=== PATIENT | male | born 1940 | race Caucasian/White ===

== ENCOUNTER 2020-04-09 04:43 | Observation (INO) ==
[2020-04-09] MEDS ORDERED: GLUCAGON 1 MG VIAL IM PRN (10:44)
[2020-04-09 11:25] LABS: Basophils # 0.1 10*3/uL (0.0-0.2); Basophils % 0.9 % (0.0-0.8); Eosinophils % 0.8 % (0.00-10.9); Hematocrit 51.8 VOL% (42.0-52.0); Immature Granulocytes % 0.2 %; Immature Granulocytes Absolute 0.01 #; Lymphocytes % 18.3 % (21.2-54.2); Mean Corpuscular HGB Conc 32.8 GM/DL (32-36); Mean Corpuscular Volume 90.4 FL (87-102); Monocytes % 8.1 % (1.7-12.7); Neutrophils % 71.7 % (38.7-73.9); Platelet Count 160 T/CUMM (130-400); Red Blood Count 5.73 MC/CUMM (3.8-5.5); Red Cell Distribution Width 12.8 % (9.3-17.3); White Blood Count 5.3 T/CUMM (4-12)
[2020-04-09 12:14] LABS: Albumin 3.7 G/DL (3.4-5.0); Bilirubin,Total 0.8 MG/DL (0.2-1.0); Calcium 9.2 MG/DL (8.5-10.1); Osmolality,Calculated 280.7 MOS/KG (273-304); Risk Ratio 3.51; Thyroid Stimulating Hormone 1.89 uIU/ml (0.358-3.74); Total Protein 7.8 G/DL (6.4-8.3); VLDL CHOLESTEROL 22.8 MG/DL
[2020-04-09] MEDS: PANTOPRAZOLE 40 MG VIAL IV SCH (14:52)
[2020-04-09] MEDS: SODIUM CHLORIDE 0.9% 1,000 ML IV SCH (14:52)
[2020-04-09] MEDS ORDERED: ENOXAPARIN 40 MG/0.4 ML SYRINGE SUBCUT SCH (21:00)
[2020-04-09] MEDS: ATORVASTATIN 40 MG TABLET PO SCH (21:58)
[2020-04-09] MEDS: ENOXAPARIN 80 MG/0.8 ML SYRINGE SUBCUT SCH (21:59)
[2020-04-10] MEDS: SODIUM CHLORIDE 0.9% 1,000 ML IV SCH ×2 (00:12→21:36)
[2020-04-10 06:06] LABS: Basophils # 0.1 10*3/uL (0.0-0.2); Basophils % 1.3 % (0.0-0.8); Eosinophils # 0.1 10*3/uL (0.0-0.87); Eosinophils % 2.6 % (0.00-10.9); Hematocrit 44.2 VOL% (42.0-52.0); Hemoglobin 14.8 GM/DL (14.0-18.0); Immature Granulocytes % 0.4 %; Immature Granulocytes Absolute 0.02 #; Lymphocytes # 1.8 10*3/uL (1.4-4.0); Lymphocytes % 33.5 % (21.2-54.2); Mean Corpuscular HGB Conc 33.5 GM/DL (32-36); Mean Corpuscular Volume 89.7 FL (87-102); Neutrophils % 50.2 % (38.7-73.9); Platelet Count 167 T/CUMM (130-400); Red Blood Count 4.93 MC/CUMM (3.8-5.5); Red Cell Distribution Width 12.9 % (9.3-17.3); White Blood Count 5.3 T/CUMM (4-12)
[2020-04-10 06:27] LABS: Calcium 8.2 MG/DL (8.5-10.1); Osmolality,Calculated 280.5 MOS/KG (273-304)
[2020-04-10] MEDS ORDERED: diphenhydrAMINE CAP 50 MG CAPSULE PO ONE (06:43)
[2020-04-10] MEDS ORDERED: DIAZEPAM 5 MG TABLET PO ONE (06:43)
[2020-04-10] MEDS: PANTOPRAZOLE 40 MG VIAL IV SCH (08:01)
[2020-04-10] MEDS: ENOXAPARIN 80 MG/0.8 ML SYRINGE SUBCUT SCH (08:02)
[2020-04-10] MEDS ORDERED: ASPIRIN EC 81 MG TABLET PO SCH (09:00)
[2020-04-10] MEDS ORDERED: MIDAZOLAM 2 MG/2 ML VIAL ONE (09:43)
[2020-04-10] MEDS ORDERED: LIDOCAINE 1% 20 ML VIAL ONE (09:43)
[2020-04-10] MEDS ORDERED: HEPARIN/NACL 0.9% 2 UNITS/ML 1,000 ML IV ONE (09:43)
[2020-04-10] MEDS ORDERED: NITROGLYCERIN DRIP 50 MG/250 ML BOTTLE IV ONE (09:43)
[2020-04-10] MEDS ORDERED: fentaNYL 100 MCG/2 ML VIAL ONE (09:44)
[2020-04-10] MEDS ORDERED: VERAPAMIL 5 MG/2 ML VIAL ONE (09:44)
[2020-04-10] MEDS: ATORVASTATIN 40 MG TABLET PO SCH (21:35)
[2020-04-11 05:57] LABS: Basophils # 0.1 10*3/uL (0.0-0.2); Eosinophils # 0.1 10*3/uL (0.0-0.87); Eosinophils % 1.9 % (0.00-10.9); Hematocrit 44.8 VOL% (42.0-52.0); Immature Granulocytes % 0.2 %; Immature Granulocytes Absolute 0.01 #; Lymphocytes # 0.8 10*3/uL (1.4-4.0); Mean Corpuscular HGB Conc 33.5 GM/DL (32-36); Mean Corpuscular Volume 89.8 FL (87-102); Mean Platelet Volume 9.9 FL (9.6-12.0); Monocytes % 11.5 % (1.7-12.7); Neutrophils % 69.4 % (38.7-73.9); Platelet Count 147 T/CUMM (130-400); Red Blood Count 4.99 MC/CUMM (3.8-5.5); Red Cell Distribution Width 12.9 % (9.3-17.3); White Blood Count 5.1 T/CUMM (4-12)
[2020-04-11 06:21] LABS: Calcium 8.5 MG/DL (8.5-10.1); Osmolality,Calculated 280.4 MOS/KG (273-304)
[2020-04-11 08:53] VITALS: BP 138/68
[2020-04-11] MEDS ORDERED: ASPIRIN EC 81 MG TABLET PO SCH (09:00)
[2020-04-11] MEDS: PANTOPRAZOLE 40 MG VIAL IV SCH (09:54)
== END 2020-04-11 13:35 | disposition home or self-care (01) ==
LOC: N.TELES
PROVIDERS: ADMIT Internal Medicine; ATTEND Internal Medicine
PROC: CLCCHCL (ICD-10-PCS; 2020-04-10 10:15)

== ENCOUNTER 2020-12-23 14:33 | Inpatient (IN) ==
[2020-12-23] MEDS ORDERED: DEXTROSE 50% 25 GM/50 ML VIAL IV PRN (16:20)
[2020-12-23] MEDS ORDERED: ONDANSETRON 4 MG/2 ML VIAL IV PRN (16:20)
[2020-12-23] MEDS ORDERED: GLUCAGON 1 MG VIAL IM PRN (16:20)
[2020-12-23] MEDS ORDERED: ONDANSETRON 4 MG/2 ML VIAL ONE (16:21)
[2020-12-23] MEDS ORDERED: HYDROmorphone 2 MG/1 ML VIAL ONE (16:22)
[2020-12-23] MEDS: HYDROmorphone 2 MG/1 ML VIAL IV PRN ×2 (16:26→22:58)
[2020-12-23] MEDS ORDERED: BISACODYL 5 MG TABLET PO PRN (16:38)
[2020-12-23] MEDS ORDERED: HYDROmorphone 2 MG/1 ML VIAL IV PRN (16:38)
[2020-12-23] MEDS ORDERED: ALBUTEROL/IPRATROPIUM 3 ML NEB RESP TX PRN (16:38)
[2020-12-23] MEDS ORDERED: ACETAMINOPHEN 325 MG TABLET PO PRN (16:38)
[2020-12-23] MEDS ORDERED: LACTATED RINGERS 1,000 ML IV ONE (16:40)
[2020-12-23] MEDS: LACTATED RINGERS 1,000 ML IV SCH (17:53)
[2020-12-23] MEDS: PIPERACILLIN/TAZOBACTAM 3,375 MG in SODIUM CHLORIDE 0.9% 100 ML IV SCH (21:30)
[2020-12-24] MEDS: LACTATED RINGERS 1,000 ML IV SCH ×2 (03:01→09:28)
[2020-12-24] MEDS: PIPERACILLIN/TAZOBACTAM 3,375 MG in SODIUM CHLORIDE 0.9% 100 ML IV SCH ×3 (03:02→20:08)
[2020-12-24] MEDS: HYDROmorphone 2 MG/1 ML VIAL IV PRN ×5 (04:44→13:52)
[2020-12-24 05:25] LABS: Basophils % 0.4 % (0.0-0.8); Eosinophils % 0.1 % (0.00-10.9); Hematocrit 44.9 VOL% (42.0-52.0); Hemoglobin 14.2 GM/DL (14.0-18.0); Lymphocytes # 0.5 10*3/uL (1.4-4.0); Lymphocytes % 4.7 % (21.2-54.2); Mean Corpuscular HGB Conc 31.6 GM/DL (32-36); Mean Corpuscular Volume 92.8 FL (87-102); Mean Platelet Volume 10.8 FL (9.6-12.0); Monocytes % 9.2 % (1.7-12.7); Neutrophils % 84.6 % (38.7-73.9); Platelet Count 116 T/CUMM (130-400); Red Blood Count 4.84 MC/CUMM (3.8-5.5); Red Cell Distribution Width 14.3 % (9.3-17.3); White Blood Count 9.6 T/CUMM (4-12)
[2020-12-24 05:53] LABS: Albumin 2.8 G/DL (3.4-5.0); Bilirubin,Total 3.7 MG/DL (0.20-1.00); Calcium 8.6 MG/DL (8.5-10.1); Osmolality,Calculated 283.3 MOS/KG (273-304); Potassium 3.9 MMOL/L (3.5-5.1); Total Protein 6.9 G/DL (6.4-8.2)
[2020-12-24 05:54] LABS: Lymphocytes 10 % (20-55); Platelet Estimate Decreased; Segmented Neutrophils 87 % (50-85); Total Cells Counted 100
[2020-12-24] MEDS: PANTOPRAZOLE 40 MG TABLET PO SCH ×2 (08:56→09:29)
[2020-12-24] MEDS ORDERED: propofoL 200 MG/20 ML VIAL IV ONE (09:18)
[2020-12-24] MEDS ORDERED: ETOMIDATE 40 MG/20 ML VIAL IV ONE (09:18)
[2020-12-24] MEDS ORDERED: fentaNYL 100 MCG/2 ML VIAL ONE ×2 (09:18→12:16)
[2020-12-24] MEDS ORDERED: LIDOCAINE 2% 5 ML VIAL ONE (09:18)
[2020-12-24] MEDS ORDERED: ROCURONIUM 50 MG/5 ML VIAL IV ONE (09:18)
[2020-12-24] MEDS ORDERED: BUPIVACAINE MPF 0.25% 30 ML VIAL ONE (09:28)
[2020-12-24] MEDS ORDERED: LIDOCAINE 1%/EPI INJ 20 ML VIAL ONE (09:28)
[2020-12-24] MEDS ORDERED: TISSUE ADHESIVE 1 EACH APPLICATOR TOP ONE (09:28)
[2020-12-24] MEDS ORDERED: INDOCYANINE GREEN 25 MG VIAL IV ONE (09:30)
[2020-12-24] MEDS ORDERED: ALBUMIN 5% 12.5 GM/250 ML VIAL IV ONE (09:35)
[2020-12-24] MEDS ORDERED: FAMOTIDINE 20 MG/2 ML VIAL IV ONE (10:12)
[2020-12-24] MEDS ORDERED: ONDANSETRON 4 MG/2 ML VIAL ONE ×2 (10:41→12:46)
[2020-12-24] MEDS ORDERED: DEXAMETHASONE 4 MG/1 ML VIAL ONE (10:41)
[2020-12-24] MEDS ORDERED: ePHEDrine 50 MG/ML VIAL ONE (10:44)
[2020-12-24] MEDS ORDERED: SUGAMMADEX 200 MG/2 ML VIAL IV ONE (12:38)
[2020-12-24] MEDS ORDERED: SEVOFLURANE 1 UNIT/15 MINUTE INH ONE (12:46)
[2020-12-24] MEDS ORDERED: LACTATED RINGERS 1,000 ML IV ONE (12:53)
[2020-12-24] MEDS ORDERED: ONDANSETRON 4 MG/2 ML VIAL IV PRN (13:20)
[2020-12-24] MEDS: GABAPENTIN 300 MG CAPSULE PO SCH (20:14)
[2020-12-25] MEDS: LACTATED RINGERS 1,000 ML IV SCH ×3 (02:21→09:21)
[2020-12-25] MEDS: PIPERACILLIN/TAZOBACTAM 3,375 MG in SODIUM CHLORIDE 0.9% 100 ML IV SCH ×3 (04:56→20:00)
[2020-12-25 05:30] LABS: Basophils % 0.3 % (0.0-0.8); Hematocrit 35.1 VOL% (42.0-52.0); Immature Granulocytes % 0.5 %; Immature Granulocytes Absolute 0.03 #; Lymphocytes # 0.4 10*3/uL (1.4-4.0); Mean Corpuscular HGB Conc 32.8 GM/DL (32-36); Mean Corpuscular Volume 92.4 FL (87-102); Mean Platelet Volume 10.9 FL (9.6-12.0); Monocytes % 8.2 % (1.7-12.7); Platelet Count 95 T/CUMM (130-400); Red Cell Distribution Width 14.5 % (9.3-17.3)
[2020-12-25 05:33] LABS: Hemoglobin 11.5 GM/DL (14.0-18.0)
[2020-12-25 05:49] LABS: Albumin 2.3 G/DL (3.4-5.0); Bilirubin,Total 3.6 MG/DL (0.20-1.00); Osmolality,Calculated 284.3 MOS/KG (273-304); Potassium 3.7 MMOL/L (3.5-5.1); Total Protein 5.9 G/DL (6.4-8.2)
[2020-12-25 06:47] LABS: Band Neutrophils 1 % (0-10); Lymphocytes 11 % (20-55); Platelet Estimate Decreased; Segmented Neutrophils 86 % (50-85); Total Cells Counted 100
[2020-12-25] MEDS: PANTOPRAZOLE 40 MG TABLET PO SCH (08:38)
[2020-12-25] MEDS: LOSARTAN 50 MG TABLET PO SCH (08:38)
[2020-12-25] MEDS: GABAPENTIN 300 MG CAPSULE PO SCH ×2 (08:38→20:01)
[2020-12-26] MEDS: PIPERACILLIN/TAZOBACTAM 3,375 MG in SODIUM CHLORIDE 0.9% 100 ML IV SCH ×2 (05:12→11:23)
[2020-12-26 06:02] LABS: Basophils % 0.6 % (0.0-0.8); Eosinophils # 0.1 10*3/uL (0.0-0.87); Eosinophils % 1.3 % (0.00-10.9); Hematocrit 38.4 VOL% (42.0-52.0); Hemoglobin 12.5 GM/DL (14.0-18.0); Immature Granulocytes % 0.4 %; Immature Granulocytes Absolute 0.03 #; Lymphocytes # 0.8 10*3/uL (1.4-4.0); Mean Corpuscular HGB Conc 32.6 GM/DL (32-36); Mean Platelet Volume 10.9 FL (9.6-12.0); Monocytes % 7.8 % (1.7-12.7); Neutrophils % 78.9 % (38.7-73.9); Platelet Count 113 T/CUMM (130-400); Red Blood Count 4.13 MC/CUMM (3.8-5.5); Red Cell Distribution Width 14.5 % (9.3-17.3); White Blood Count 7.2 T/CUMM (4-12)
[2020-12-26 06:12] LABS: Albumin 2.4 G/DL (3.4-5.0); Bilirubin,Total 2.5 MG/DL (0.20-1.00); Calcium 8.7 MG/DL (8.5-10.1); Osmolality,Calculated 280.3 MOS/KG (273-304); Potassium 3.6 MMOL/L (3.5-5.1); Total Protein 6.7 G/DL (6.4-8.2)
[2020-12-26] MEDS: PANTOPRAZOLE 40 MG TABLET PO SCH (08:44)
[2020-12-26] MEDS: GABAPENTIN 300 MG CAPSULE PO SCH (08:45)
[2020-12-26] MEDS: LOSARTAN 50 MG TABLET PO SCH (08:45)
[2020-12-26 09:09] LABS: Platelet Estimate Adequate
[2020-12-26 09:10] LABS: Anisocytosis Slight; Macrocytosis Slight
[2020-12-26] MEDS ORDERED: LACTULOSE 20 GM/30 ML UDCUP PO SCH (10:13)
[2020-12-26 11:56] VITALS: BP 130/62
== END 2020-12-26 14:01 | disposition home or self-care (01) | DRG 413 ==
LOC: EDUNIT# → EDBD → N.ED 14:33 → SUATTDRO 16:20 → N.EDINP 16:20 → N.5E 19:22
PROVIDERS: ADMIT Internal Medicine; ATTEND Internal Medicine